=== PATIENT | male | born 1985 | race Caucasian/White ===

== ENCOUNTER 2017-06-25 11:35 | Emergency (ER) | payer OTHER ==
[2017-06-25 11:36] VITALS: BP 159/88; PULSE 109; RESP 12; TEMP 97.9; O2SAT 97
--- NOTE | 2017-06-25 11:40 | PD ---
HPI Chief Complaint: Laceration/Skin Injury Time Seen by Provider: 11:40 Travel History International Travel<30 days: No Contact w/Intl Traveler<30days: No Traveled to known affect area: No History of Present Illness HPI 31-year-old male with no significant medical history presents to the emergency department for evaluation of left index finger injury. This was a crush injury while building a porch. Patient reports moderate pain at the site, it is constant.. Is uncertain of his tetanus status. Denies any limitations range of motion. Denies any alterations in sensation. He has no other symptoms to report. [facility] Past Medical History Medical History: Denies Significant Hx Social History Tobacco Use: No Allergies-Medications (Allergen,Severity, Reaction): Coded Allergies: No Known Allergies (Unverified , 06/25/17) Reported Meds & Prescriptions Reported Meds & Active Scripts Active Blue (Hydrocodone-Acetaminophen) 5 Mg-325 Mg Tab 1 Tab PO Q6H PRN Ibuprofen 600 Mg Tab 600 Mg PO Q8HR PRN Keflex (Cephalexin) 500 Mg Cap 500 Mg PO Q6H 5 Days Review of Systems Except as stated in HPI: all other systems reviewed are Neg Physical Exam Narrative GENERAL: Well-nourished, well-developed male patient in no acute distress. SKIN: Focused skin assessment warm/dry. 2-1/2 cm laceration on the distal aspect of left index finger. Bleeding is controlled. HEAD: Normocephalic. EYES: No scleral icterus. No injection or drainage. NECK: Supple, trachea midline. No JVD or lymphadenopathy. CARDIOVASCULAR: Regular rate and rhythm without murmurs, gallops, or rubs. RESPIRATORY: Breath sounds equal bilaterally. No accessory muscle use. MUSCULOSKELETAL: No cyanosis, or edema. She has full flexion extension of the affected digit. Distal pulses are palpable. Cap refill within normal limits. BACK: Nontender without obvious deformity. No CVA tenderness. Data Data Last Documented VS Vital Signs Date Time Temp Pulse Resp B/P (MAP) Pulse Ox O2 Delivery O2 Flow Rate FiO2 06/25/17 13:14 06/25/17 11:36 97.9 109 12 97 Orders Orders Finger ([id number]) (06/25/17 ) Tetanus/Diphtheria Tox Adult (Tetanus/Di (06/25/17 11:45) Lidocaine 2% Inj (Xylocaine 2% Inj) (2/3/18 11:45) Povidone Iodine 10% Oint (Betadine 10% O (06/25/17 12:45) Ed Discharge Order (06/25/17 12:43) Wound Care (06/25/17 12:43) Lidocaine 1% Inj (Xylocaine 1% Inj) (06/25/17 13:45) MDM Medical Decision Making Medical Screen Exam Complete: Yes Emergency Medical Condition: Yes Medical Record Reviewed: Yes Differential Diagnosis Laceration superficial versus deep versus open fracture versus abrasion versus avulsion Narrative Course 31-year-old male presents to emergency department for evaluation of a crush injury to his index finger of the left hand. Patient sustained a large laceration. X-ray imaging confirms no acute bony abnormality. Wound is cleansed and approximated. Patient is counseled on care. He is updated on his tetanus vaccination. He agrees to return immediately with any acute worsening symptoms. Procedures Procedure Narrative LACERATION LOCATION: Left index finger LENGTH: 2-1/2 cm NUMBER OF STITCHES/STEPHON: 9 sutures REPAIR: The area of the laceration was prepped with Betadine and sterilely draped. The laceration was infiltrated with 2% lidocaine. The wound was copiously irrigated and explored without evidence of foreign body, tendon injury or neurovascular injury. The wound was closed using 4-0 Prolene. This was a single layer repair. A sterile dressing was applied. The patient was advised to keep the dressing clean and dry. Patient tolerated the procedure well. Diagnosis Primary Impression: Finger laceration Qualified Codes: S61.311A - Laceration without foreign body of left index finger with damage to nail, initial encounter Additional Impression: Crush injury of hand Qualified Codes: S67.22XA - Crushing injury of left hand, initial encounter Referrals: Hand Surgeon Primary Care Physician Patient Instructions: Finger Laceration (ED), General Instructions Additional Instructions: Elevate to reduce pain and swelling Follow-up with her primary care provider Sutures are to be removed in 10 days. This can be done in the emergency department are your primary care provider's office Ice will also help reduce pain and swelling. Do this for no longer than 20 minutes at a time and make sure there is a barrier between your skin and the ice WEAR your aluminum splint for protection Return to the emergency department with any acute worsening of symptoms Med/Other Pt SpecificInfo: Prescription(s) given Scripts Hydrocodone-Acetaminophen (Blue) 5 Mg-325 Mg Tab 1 TAB PO Q6H Y for PAIN GREATER THAN 6, #15 TAB 0 Refills Prov: Herminia Mac 06/25/17 Ibuprofen (Ibuprofen) 600 Mg Tab 600 MG PO Q8HR Y for PAIN, #30 TAB 0 Refills Prov: Herminia Mac 06/25/17 Cephalexin (Keflex) 500 Mg Cap 500 MG PO Q6H for Infection for 5 Days, #20 CAP 0 Refills Prov: Herminia Mac 06/25/17 Disposition: 01 DISCHARGE HOME Condition: Stable Herminia Mac Jun 25, 2017 11:40
[2017-06-25] MEDS ORDERED: LIDOCAINE HCL 2% 20 ML VIAL INFIL ONE (11:45)
[2017-06-25] MEDS ORDERED: TETANUS/DIPHTHERIA TOXOID ADULT 0.5 ML VIAL IM ONE (11:45)
--- NOTE | 2017-06-25 12:03 | RADRPT ---
EXAM DATE/TIME: 06/25/2017 11:51 [place] COMPARISON: No previous studies available for comparison. INDICATIONS : Left hand, second digit laceration. Patient got finger caught between 2 beams. MEDICAL HISTORY : None. SURGICAL HISTORY : None. ENCOUNTER: Initial ACUITY: 1 day PAIN SCORE: 10/10 LOCATION: Left hand, second digit. FINDINGS: Examination of the second digit of the left hand demonstrates no evidence of fracture or dislocation. No radiopaque foreign bodies are seen. Soft tissue swelling/laceration of the index finger CONCLUSION: Soft tissue injury second digit without fracture.. Benny Munoz MD on June 25, 2017 at 11:58 Board Certified Radiologist. This report was verified electronically.
[2017-06-25] MEDS ORDERED: NORC5TAB PO (12:41)
[2017-06-25] MEDS ORDERED: IBUP-232 PO (12:41)
[2017-06-25] MEDS ORDERED: CEPH-460 PO (12:41)
[2017-06-25] MEDS ORDERED: POVIDONE IODINE 10% OINT 30 GM TUBE TOPICAL ONE (12:45)
[2017-06-25] MEDS ORDERED: LIDOCAINE HCL 1% 30 ML VIAL INFIL ONE (13:45)
== END 2017-06-25 14:17 | disposition home or self-care (01) ==
LOC: NEPD 11:35
DX: S61.211A Laceration without foreign body of left index finger without damage to nail, initial encounter (principal); X58.XXXA Exposure to other specified factors, initial encounter; Y93.H3 Activity, building and construction; Z23 Encounter for immunization
CPT/HCPCS: 12001; 73140; 90471; 90714

== ENCOUNTER 2017-07-05 15:52 | Emergency (ER) | payer OTHER ==
[~2017-07-05] VITALS: Ht 157.5 cm; Wt 68.0 kg
[~2017-07-05 15:52] MED LIST: CEPH-460 PO; IBUP-232 PO; NORC5TAB PO
[2017-07-05 15:53] VITALS: BP 136/90; PULSE 76; RESP 16; TEMP 98.2; O2SAT 99
--- NOTE | 2017-07-05 16:26 | PD ---
HPI Chief Complaint: Laceration/Skin Injury Time Seen by Provider: 16:02 Travel History International Travel<30 days: No Contact w/Intl Traveler<30days: No Traveled to known affect area: No History of Present Illness HPI This patient is a Sami speaker, all interpretation was via official medical interpreter. 31-year-old male presents for suture removal. He was seen here several days ago with a laceration to the finger pad of the left next finger. It was repaired with sutures. He continues to have pain in the left index finger as well as some limited range of motion. Pain is aching, constant, worse with palpation. Denies any fevers, chills. He has been using a finger splint most of the time. He has been on light duty at work. He works in construction. No other complaints at this time. [facility] Social History Alcohol Use: No Tobacco Use: No Substance Use: No Allergies-Medications (Allergen,Severity, Reaction): Coded Allergies: No Known Allergies (Unverified , 06/25/17) Reported Meds & Prescriptions Reported Meds & Active Scripts Active [place] (Hydrocodone-Acetaminophen) 5 Mg-325 Mg Tab 1 Tab PO Q6H PRN Ibuprofen 600 Mg Tab 600 Mg PO Q8HR PRN Keflex (Cephalexin) 500 Mg Cap 500 Mg PO Q6H 5 Days Review of Systems General / Constitutional: No: Fever, Chills Musculoskeletal: Positive: Limited ROM, Pain Skin: Positive Other (positive for laceration, sutures) Physical Exam Narrative GENERAL: Well-developed well-nourished male in no acute distress SKIN: Warm and dry. Well healing laceration in the finger pad of left index finger with multiple sutures in place and some scabbing. There is some tenderness to palpation. HEAD: Atraumatic. Normocephalic. EYES: Pupils equal and round. No scleral icterus. No injection or drainage. ENT: No nasal bleeding or discharge. Mucous membranes pink and moist. NECK: Trachea midline. No JVD. CARDIOVASCULAR: Regular rate and rhythm. No murmur appreciated. RESPIRATORY: No accessory muscle use. Clear to auscultation. Breath sounds equal bilaterally. MUSCULOSKELETAL: Skin as noted above. The patient has range of motion limitation in the left index finger PIP and DIP joints. NEUROLOGICAL: Awake and alert. No obvious cranial nerve deficits. Motor grossly within normal limits. Normal speech. Data Data Last Documented VS Vital Signs Date Time Temp Pulse Resp B/P (MAP) Pulse Ox O2 Delivery O2 Flow Rate FiO2 07/05/17 15:53 98.2 76 16 136/90 (105) 99 Room Air Orders Orders Ed Discharge Order (07/05/17 16:23) MDM Medical Decision Making Medical Screen Exam Complete: Yes Emergency Medical Condition: Yes Medical Record Reviewed: Yes Differential Diagnosis Suture removal, wound dehiscence, infected wound Narrative Course The sutures were removed without incident but the wound is still healing and the patient has some limited range of motion in the left index finger which could possibly be secondary to splinting. 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 He verbalizes understanding. Diagnosis Primary Impression: Visit for suture removal Additional Instructions: Follow-up with primary care physician in one to 2 weeks. No returning to full duty work until cleared by primary care physician. Decrease use of finger splint and increased range of motion activities in the left index finger. Wash the wound very gently with soap and water and apply antibiotic cream daily until healed. Return for any emergent medical conditions. Med/Other Pt SpecificInfo: Wound Care Disposition: 01 DISCHARGE HOME Condition: Stable Richmond Davenport Jul 05, 2017 16:26
== END 2017-07-05 16:43 | disposition home or self-care (01) ==
LOC: NEPK 15:52
DX: Z48.02 Encounter for removal of sutures (principal)
CPT/HCPCS: 99281

== ENCOUNTER 2018-01-22 07:59 | Inpatient (IN) ==
[2018-01-22] MEDS ORDERED: Ketorolac Inj 30 MG/ML (IVP) Vial IV.PUSH ONE (08:11)
[2018-01-22] MEDS ORDERED: Sod Chloride 0.9% Inj 1,000 ML IV.SIG ONE (08:11)
[2018-01-22 08:35] LABS: Baso # (Auto) 0.1 th/mm3 (0.0-0.2); Baso % (Auto) 0.3 % (0.0-2.0); Eos % (Auto) 0.1 % (0.0-4.0); Hematocrit 41.5 % (39.0-51.0); Hemoglobin 14.1 gm/dL (13.0-17.0); Lymph # (Auto) 1.4 th/mm3 (1.0-4.8); Lymph % (Auto) 6.9 % (9.0-44.0); Mean Corpuscular HGB Conc 33.9 % (32.0-36.0); Mean Corpuscular Hemoglobin 31.5 pg (27.0-34.0); Mean Corpuscular Volume 92.8 fL (80.0-100.0); Mean Platelet Volume 7.3 fL (7.0-11.0); Mono # (Auto) 1.2 th/mm3 (0.0-0.9); Mono % (Auto) 5.8 % (0.0-8.0); Neut # (Auto) 18.1 th/mm3 (1.8-7.7); Neut % (Auto) 86.9 % (16.0-70.0); Platelet Count 265 th/mm3 (150-450); Red Blood Count 4.47 mil/mm3 (4.50-5.90); White Blood Count 20.9 th/mm3 (4.0-11.0)
[2018-01-22 08:51] LABS: Alanine Aminotransferase 39 U/L (12-78); Albumin 3.5 g/dL (3.4-5.0); Anion Gap 11 meq/L (5-15); Aspartate Aminotransferase 14 U/L (15-37); Blood Urea Nitrogen 10 mg/dL (7-18); Calcium 8.2 mg/dL (8.5-10.1); Carbon Dioxide 26.7 meq/L (21.0-32.0); Chloride 100 meq/L (98-107); Glomerular Filtration Rate Greater Than 89 mL/min (>89); Glucose,Random 105 mg/dL (74-106); Lipase 78 U/L (73-393); Potassium 3.6 meq/L (3.5-5.1); Sodium 138 meq/L (136-145)
[2018-01-22 08:52] LABS: Alkaline Phosphatase 70 U/L (45-117)
[2018-01-22 09:06] LABS: Bilirubin,Urine Negative (Negative); Clarity,Urine Clear (Clear); Color,Urine Yellow (Yellw/Straw); Glucose,Urine (UA) Negative (Negative); Leukocyte Esterase,Urine Negative (Negative); Mucus,Urine Few /lpf (Occasional); Nitrite,Urine Negative (Negative); Specific Gravity,Urine 1.019 (1.002-1.035); Urobilinogen,Urine 4 or Greater mg/dL (Less than 2)
--- NOTE | 2018-01-22 09:13 | ED ---
HPI General Chief complaint: Abdominal Pain Stated complaint: Abd pain Time Seen by Provider: 01/22/18 08:11 Source: patient Mode of arrival: ambulatory Limitations: no limitations History of Present Illness HPI narrative: Patient is a 32-year-old male who comes in complaining of lower abdominal pain. He says the pain is across his lower abdomen and has been going on for the past 2 days. He denies vomiting. He says he had a fever last night, but he did not measure his temperature. He does report having diarrhea and mucousy stools. He has not taken anything for the pain. He says he has never had this pain before. Severity is mild to moderate. Related Data Home Medications Medication Instructions Recorded Confirmed No Known Home Medications 01/22/18 01/22/18 Allergies Allergy/AdvReac Type Severity Reaction Status Date / Time No Known Allergies Allergy Verified 01/22/18 08:12 Review of Systems ROS: all other systems reviewed are negative Constitutional Denies chills and Denies fever(s) ENT Denies dizziness Cardiovascular Denies chest pain Respiratory Denies cough and Denies dyspnea Gastrointestinal Reports abdominal pain, Reports nausea and Denies vomiting Genitourinary Denies flank pain Musculoskeletal Denies myalgias and Denies arthralgias Integumentary/Breasts Denies lesions and Denies rash Neurologic Denies focal weakness and Denies numbness [facility] Medical History Medical History Patient denies medical problems (Acute) Surgical History Surgical History No history of previous surgery (Acute) Social History Social History Substance History: No History of Abuse Smoking Status: Never smoker How Often Do You Have a Drink Containing Alcohol: Never Recent Travel in [facility] within the Last 8 Weeks: No Recent Out of Country Travel within the Last 8 Weeks: No Immunization History Tetanus Immunization: <5 Years Hx Influenza Vaccine This Season: No Exam Narrative Exam Narrative: GENERAL: Awake and alert, in no acute distress. SKIN: Focused skin assessment warm/dry. HEAD: Atraumatic. Normocephalic. EYES: Pupils equal and round. No scleral icterus. ENT: No nasal bleeding or discharge. Mucous membranes pink and moist. NECK: Trachea midline. No JVD. CARDIOVASCULAR: Regular rate and rhythm. No murmur appreciated. RESPIRATORY: No accessory muscle use. Clear to auscultation. Breath sounds equal bilaterally. GASTROINTESTINAL: Abdomen soft, nondistended. Tender across the lower abdomen, worse in the suprapubic area and RLQ. No rebound or guarding. MUSCULOSKELETAL: No obvious deformities. No clubbing. No cyanosis. No edema. NEUROLOGICAL: Awake and alert. No obvious cranial nerve deficits. Motor grossly within normal limits. Normal speech. PSYCHIATRIC: Appropriate mood and affect; insight and judgment normal. Course Initial Documented Vital Signs Temperature 98.6 F 01/22/18 08:03 Pulse Rate 100 H 01/22/18 08:03 Respiratory Rate 20 01/22/18 08:03 Blood Pressure 140/70 01/22/18 08:03 Pulse Oximetry 99 01/22/18 08:03 Last Documented Vital Signs Temperature 98.6 F 01/22/18 08:03 Pulse Rate 86 01/22/18 08:11 Respiratory Rate 20 01/22/18 08:11 Blood Pressure 119/70 01/22/18 08:11 Pulse Oximetry 99 01/22/18 08:11 Medical Decision Making MDM Narrative Medical decision making narrative: Patient is a 32-year-old male who comes in complaining of 1. Exam shows tenderness to palpation across the lower abdomen. IV established, labs sent. Labs show an elevated white blood cell count. CT abdomen and pelvis performed shows diverticulitis with perforation and abscess formation. I spoke with Dr. Santillan of general surgery, who recommends IV antibiotics and observation. He will evaluate the patient in consult. Patient given Cipro and Flagyl. Given Toradol for pain. He will be admitted for further management. Medical Screen Exam Complete: Yes Emergency Medical Condition: Yes Differential Diagnosis Differential Diagnosis: Appendicitis versus colitis versus radiculitis versus UTI Medical Records Medical records reviewed: Yes I reviewed the patient's medical records. Lab Data Lab results reviewed: Yes I reviewed the patient's lab results. Result diagrams: 01/22/18 08:20 01/22/18 08:20 Lab Results 01/22/18 01/22/18 01/22/18 Range/Units 08:20 08:20 08:50 WBC 20.9 H (4.0-11.0) th/mm3 RBC 4.47 L (4.50-5.90) mil/mm3 Hgb 14.1 (13.0-17.0) gm/dL Hct 41.5 (39.0-51.0) % MCV 92.8 (80.0-100.0) fL MCH 31.5 (27.0-34.0) pg MCHC 33.9 (32.0-36.0) % RDW 13.0 (11.6-17.2) % Plt Count 265 (150-450) th/mm3 MPV 7.3 (7.0-11.0) fL Neut % (Auto) 86.9 H (16.0-70.0) % Lymph % (Auto) 6.9 L (9.0-44.0) % [place] % (Auto) 5.8 (0.0-8.0) % Eos % (Auto) 0.1 (0.0-4.0) % Baso % (Auto) 0.3 (0.0-2.0) % Neut # (Auto) 18.1 H (1.8-7.7) th/mm3 Lymph # (Auto) 1.4 (1.0-4.8) th/mm3 [place] # (Auto) 1.2 H (0.0-0.9) th/mm3 Eos # (Auto) 0.0 (0.0-0.4) th/mm3 Baso # (Auto) 0.1 (0.0-0.2) th/mm3 WBC Differential . Differential Comment Auto diff final PT (9.8-11.6) sec INR Ratio APTT (24.3-30.1) sec Sodium 138 (136-145) meq/L Potassium 3.6 (3.5-5.1) meq/L Chloride 100 (98-107) meq/L Carbon Dioxide 26.7 (21.0-32.0) meq/L Anion Gap 11 (5-15) meq/L BUN 10 (7-18) mg/dL Creatinine 0.89 (0.60-1.30) mg/dL Estimated GFR Greater than 89 (>89) mL/min Random Glucose 105 (74-106) mg/dL Calcium 8.2 L (8.5-10.1) mg/dL Total Bilirubin 1.2 H (0.2-1.0) mg/dL AST 14 L (15-37) U/L ALT 39 (12-78) U/L Alkaline Phosphatase 70 (45-117) U/L Total Protein 8.0 (6.4-8.2) g/dL Albumin 3.5 (3.4-5.0) g/dL Lipase 78 (73-393) U/L Urine Color Yellow (Yellw/Straw) Urine Clarity Clear (Clear) Urine pH 6.0 (5.0-8.5) Ur Specific [place] 1.019 (1.002-1.035) Urine Protein 30 H (Neg-Trace) mg/dL Urine Glucose (UA) Negative (Negative) mg/dL Urine Ketones 20 (Negative) mg/dL Urine Occult Blood Moderate H (Negative) Urine Nitrate Negative (Negative) Urine Bilirubin Negative (Negative) Urine Urobilinogen 4 or greater (Less than 2) mg/dL Ur Leukocyte Esterase Negative (Negative) Urine RBC 7 H (0-3) /hpf Urine WBC 1 (0-5) /hpf Urine Mucus Few H (Occasional) /lpf Micro UA Comment Culture not ind Ur Microscopic Review Not Reportable Urine Culture Comments Culture not ind 01/22/18 Range/Units 09:33 WBC (4.0-11.0) th/mm3 RBC (4.50-5.90) mil/mm3 Hgb (13.0-17.0) gm/dL Hct (39.0-51.0) % MCV (80.0-100.0) fL MCH (27.0-34.0) pg MCHC (32.0-36.0) % RDW (11.6-17.2) % Plt Count (150-450) th/mm3 MPV (7.0-11.0) fL Neut % (Auto) (16.0-70.0) % Lymph % (Auto) (9.0-44.0) % [place] % (Auto) (0.0-8.0) % Eos % (Auto) (0.0-4.0) % Baso % (Auto) (0.0-2.0) % Neut # (Auto) (1.8-7.7) th/mm3 Lymph # (Auto) (1.0-4.8) th/mm3 [place] # (Auto) (0.0-0.9) th/mm3 Eos # (Auto) (0.0-0.4) th/mm3 Baso # (Auto) (0.0-0.2) th/mm3 WBC Differential Differential Comment PT 11.5 (9.8-11.6) sec INR 1.1 Ratio APTT 31.2 H (24.3-30.1) sec Sodium (136-145) meq/L Potassium (3.5-5.1) meq/L Chloride (98-107) meq/L Carbon Dioxide (21.0-32.0) meq/L Anion Gap (5-15) meq/L BUN (7-18) mg/dL Creatinine (0.60-1.30) mg/dL Estimated GFR (>89) mL/min Random Glucose (74-106) mg/dL Calcium (8.5-10.1) mg/dL Total Bilirubin (0.2-1.0) mg/dL AST (15-37) U/L ALT (12-78) U/L Alkaline Phosphatase (45-117) U/L Total Protein (6.4-8.2) g/dL Albumin (3.4-5.0) g/dL Lipase (73-393) U/L Urine Color (Yellw/Straw) Urine Clarity (Clear) Urine pH (5.0-8.5) Ur Specific [place] (1.002-1.035) Urine Protein (Neg-Trace) mg/dL Urine Glucose (UA) (Negative) mg/dL Urine Ketones (Negative) mg/dL Urine Occult Blood (Negative) Urine Nitrate (Negative) Urine Bilirubin (Negative) Urine Urobilinogen (Less than 2) mg/dL Ur Leukocyte Esterase (Negative) Urine RBC (0-3) /hpf Urine WBC (0-5) /hpf Urine Mucus (Occasional) /lpf Micro UA Comment Ur Microscopic Review Urine Culture Comments Imaging Data Radiologist's impression: Abdomen/Pelvis CT 01/22/18 08:11 CONCLUSION: 1. Perforated acute diverticulitis of the sigmoid colon with developing abscess formation, and a few foci of free air identified. Discharge Plan Discharge Disposition Patient Disposition: 30 Still Patient Discharge Condition Condition: Stable Discharge Details Diagnosis: Diverticulitis, Abdominal abscess Physicians Team ED Provider: Africa Gudino Primary Care Provider: UNKNOWN, Rxs /Orders / Referrals /Forms Prescriptions: No Action No Known Home Medications RF: 0 Discharge Interventions Interventions: Vital Signs Last Done: 01/22/18 08:11 Status ED Status: With Doctor
--- NOTE | 2018-01-22 09:25 | CT ---
EXAM DATE: 01/22/2018 9:19 AM EDT AGE/SEX: 32 years / Male INDICATIONS: Lower abdominal pain 2 weeks CLINICAL DATA: This is the patient's initial encounter. Patient reports that signs and symptoms have been present for 2 weeks and indicates a pain score of 7/10. MEDICAL/SURGICAL HISTORY: None. None. ORAL CONTRAST: No oral contrast ingested. RADIATION DOSE: 4.6 CTDI (mGy) COMPARISON: No prior exams available for comparison. TECHNIQUE: Multiple contiguous axial images were obtained through the abdomen and pelvis following b olus infusion of 76ML ml Omnipaque 350 (iohexol) nonionic water-soluble contrast as a single exam d ose. No oral contrast ingested. Using automated exposure control and adjustment of the mA and/or kV according to patient size, radiation dose was kept as low as reasonably achievable to obtain optimal diagnostic quality images. DICOM format image data is available electronically for review and compar telly. FINDINGS: Osseous structures are intact. Lung bases are clear. No pleural or pericardial effusions are identifi ed. Liver, gallbladder, kidneys, adrenals, spleen, pancreas, stomach are normal in appearance. Urinar y bladder is unremarkable. The examination demonstrates abnormal bowel wall thickening involving the sigmoid colon extending approximately 10 cm in length. There is significant adjacent inflammatory str anding seen. There are a few locules of free air seen just superior to the abnormal segment of sigmoi d colon, and a rim-enhancing collection measuring 5.1 x 3.7 cm in transverse and AP dimension on imag e 58 is identified with a small amount of adjacent free fluid. The appearances characteristic of acut e diverticulitis with focal perforation and developing abscess formation. The appendix is normal. CONCLUSION: 1. Perforated acute diverticulitis of the sigmoid colon with developing abscess formation, and a few foci of free air identified. Electronically signed by: Justin Pena MD 01/22/2018 9:24 AM EDT
[2018-01-22] MEDS ORDERED: Ciprofloxacin 400 MG/200 ML 400 MG/200 ML PIGGYBACK IV.SIG ONE (09:31)
[2018-01-22 09:51] LABS: Activated Partial Thrombo Time 31.2 sec (24.3-30.1); INR 1.1 Ratio; Prothrombin Time 11.5 sec (9.8-11.6)
--- NOTE | 2018-01-22 12:13 | P.HPIM ---
History of Present Illness Service: [facility] Primary Care Physician: UNKNOWN Chief Complaint: Abdominal pain, fever History of Present Illness: Mr. Day is a 32 yo M with no significant PMH who presents to [facility] with abdominal pain. [Translation services used with assistance of nursing staff since patient is Kyrgyz speaking.] Patient reports having abdominal pain for the past 2 weeks. Pain initially was light but has worsened in intensity over the past several days. Patient also began having fever over the past ~2 days. Patient had nausea and an episode of vomiting greater than a week ago but not recently; he has not been eating as much. Patient also reported pain with bowel movements and that he has been having "phlegm" when defecating. Patient has also been urinating less until he arrived at ED. He denies prior episodes of similar symptoms. Patient does not report other symptoms at this time. No chest pain, shortness of breath, headache, visual changes, numbness/weakness, or other concerns. [Interval history: Patient found to be mildly tachycardic on admission with HR 100; otherwise normal VS. Leukocytosis on admission; CMP with mild BILI elevation to 1.2. CT A/ P demonstrated perforated diverticulitis of sigmoid colon with developing abscess; few foci of free air identified. Patient started on empiric Ciprofloxacin and Flagyl and given IV NS. ED discussed with Dr. Santillan. Patient admitted to [facility] service] - Diagnosis (1) Diverticulitis (2) Abdominal abscess Inpatient Certification: I certify that the inpatient services were ordered in accordance with Medicare regulations governing the order. This includes certification that hospital inpatient services are reasonable and necessary and in the case of services not specified as inpatient-only under 42 CFR 419.22(n), that they are appropriately provided as inpatient services in accordance to with the 2-midnight benchmark under 43 CFR 412.3(e) Review of Systems All other systems reviewed negative except as stated in HPI Constitutional: Reports fever(s), Denies body ache(s), Denies headache(s) Eyes: Denies blind spots, Denies blurry vision Ears, Nose, Mouth, and Throat: Denies mouth pain, Denies nasal congestion Cardiovascular: Denies chest pain, Denies irregular heart rhythm Respiratory: Denies chest congestion, Denies cough Gastrointestinal: Reports abdominal pain, Reports change in bowel habits Genitourinary: Denies urinary frequency, Denies urinary urgency Musculoskeletal: Denies back pain, Denies body aches Neurologic: Denies abnormal movements, Denies confusion Endocrine: Denies excessive sweating, Denies increased urination Allergic/Immunologic: Denies hives, Denies wheezing PMFSH - History History Provided By: Patient - Medical History Medical History: Medical History (Last Reviewed 01/22/18 @ 09:12 by Africa Gudino MD) Patient denies medical problems - Surgical History Surgical History: Surgical History (Last Reviewed 01/22/18 @ 09:12 by Africa Gudino MD) No history of previous surgery - Tobacco History Smoking Status: Never smoker - Alcohol History How Often Do You Have a Drink Containing Alcohol: Never - Substance Use History Substance History: No History of Abuse - Travel History Recent Travel in the [place] Within the Last 8 Weeks: No Recent Travel Out of the Country Within the Last 8 Weeks: No - Immunization History Tetanus Immunization: <5 Years Hx Influenza Vaccine This Season: No Medications and Allergies Active Medications: Active Medications Sodium Chloride (Ns Flush) 2 ml IV.FLUSH PRN PRN PRN Reason: FLUSH AFTER USING IV ACCESS Last Admin: 01/22/18 09:18 Dose: 2 ml Some OTC pain medications at home Allergies Allergy/AdvReac Type Severity Reaction Status Date / Time No Known Allergies Allergy Verified 01/22/18 08:12 Home Medications Medication Instructions Recorded Confirmed Type No Known Home Medications 01/22/18 01/22/18 History Exam Vital signs: Vital Signs 01/22/18 08:03 01/22/18 08:11 Temperature 98.6 F Pulse Rate 100 H 86 Respiratory Rate 20 20 Blood Pressure 140/70 119/70 Pulse Oximetry 99 99 Intake & Output 01/21/18 01/22/18 01/22/18 18:59 06:59 18:59 Intake Total 1200 / 1200 Balance 1200 / 1200 Weight 65.771 kg Intake: IV 1200 / 1200 Cipro 400 MG/200 ML Inj 400 mg 200 / 200 In 200 ml @ 200 mls/hr IV.SIG ONCE ONE Rx#:[id number] NS Inj 1,000 ML @ Wide Open IV. 1000 / 1000 SIG BOLUS ONE Rx#:[id number] Narrative: Gen: No acute distress Skin: NO visible lesions Neck: NO appreciated thyromegaly or lymphadenopathy CV: Regular rate and rhythm; no murmurs. Normal perfusion Resp: CTAB, normal rate Abd: Soft, no tenderness to light palpation to any quadrant. Normal BS Ext: Grossly normal strength and ROM Neuro: Grossly normal CN. Grossly normal peripheral motor/sensory function Results - Labs CBC & Chem 7: 01/22/18 08:20 01/22/18 08:20 Labs: Short CBC 01/22/18 Range/Units 08:20 WBC 20.9 H (4.0-11.0) th/mm3 Hgb 14.1 (13.0-17.0) gm/dL Hct 41.5 (39.0-51.0) % Plt Count 265 (150-450) th/mm3 BMP 01/22/18 08:20 Sodium 138 Potassium 3.6 Chloride 100 Carbon Dioxide 26.7 BUN 10 Creatinine 0.89 Calcium 8.2 L Liver Function 01/22/18 Range/Units 08:20 Total Bilirubin 1.2 H (0.2-1.0) mg/dL AST 14 L (15-37) U/L ALT 39 (12-78) U/L Alkaline Phosphatase 70 (45-117) U/L Albumin 3.5 (3.4-5.0) g/dL Urine 01/22/18 Range/Units 08:50 Urine Color Yellow (Yellw/Straw) Urine Clarity Clear (Clear) Urine pH 6.0 (5.0-8.5) Ur Specific [place] 1.019 (1.002-1.035) Urine Protein 30 H (Neg-Trace) mg/dL Urine Glucose (UA) Negative (Negative) mg/dL - Imaging Impressions Abdomen/Pelvis CT 01/22/18 08:11 CONCLUSION: 1. Perforated acute diverticulitis of the sigmoid colon with developing abscess formation, and a few foci of free air identified. Caprini VTE Risk Assessment Caprini VTE Risk Assessment: Moderate/High Risk (score >= 2) Caprini Risk Assessment Model: Point Value = 1 Point Value = 2 Point Value = 3 Point Value = 5 Age 41-60 Minor surgery BMI > 25 kg/m2 Swollen legs Varicose veins or History of unexplained or recurrent spontaneous Oral contraceptives or hormone replacement Sepsis (< 1 month) Serious lung disease, including pneumonia (< 1 month) Abnormal pulmonary function Acute myocardial infarction Congestive heart failure (< 1 month) History of inflammatory bowel disease Medical patient at bed rest Age 61-74 Arthroscopic surgery Major open surgery (> 45 min) Laparoscopic surgery (> 45 min) Malignancy Confined to bed (> 72 hours) Immobilizing plaster cast Central venous access Age >= 75 History of VTE Family history of VTE Factor V Leiden Prothrombin [id number] Lupus anticoagulant Anticardiolipin antibodies Elevated serum homocysteine Heparin-induced thrombocytopenia Other congenital or acquired thrombophilia Stroke (< 1 month) Elective arthroplasty Hip, pelvis, or leg fracture Acute spinal cord injury (< 1 month) Prophylaxis Regimen: Total Risk Factor Score Risk Level Prophylaxis Regimen 0-1 Low Early ambulation 2 Moderate Order ONE of the following: *Sequential Compression Device (SCD) *Heparin 5000 units SQ BID 3-4 Higher Order ONE of the following medications: *Heparin 5000 units SQ TID *Enoxaparin/Lovenox 40 mg SQ daily (WT < 150 kg, CrCl > 30 mL/min) *Enoxaparin/Lovenox 30 mg SQ daily (WT < 150 kg, CrCl > 10-29 mL/min) *Enoxaparin/Lovenox 30 mg SQ BID (WT < 150 kg, CrCl > 30 mL/min) AND/OR *Sequential Compression Device (SCD) 5 or more Highest Order ONE of the following medications: *Heparin 5000 units SQ TID (Preferred with Epidurals) *Enoxaparin/Lovenox 40 mg SQ daily (WT < 150 kg, CrCl > 30 mL/min) *Enoxaparin/Lovenox 30 mg SQ daily (WT < 150 kg, CrCl > 10-29 mL/min) *Enoxaparin/Lovenox 30 mg SQ BID (WT < 150 kg, CrCl > 30 mL/min) AND *Sequential Compression Device (SCD) Assessment and Plan - Assessment (1) Diverticulitis Code(s): K57.92 - Diverticulitis of intestine, part unspecified, without perforation or abscess without bleeding Status: Acute (2) Abdominal abscess Status: Acute - Plan Mr. Day is a 32 yo M with no significant PMH who presents to [facility] with abdominal pain and fever Diverticulitis Impression: 2 weeks abdominal pain with recent worsening and fever. patient with borderline tachycardia (HR 100) and leukocytosis (WBC ~20 K) on admission CT A/P demonstrated perforated diverticulitis of sigmoid colon with developing abscess; few foci of free air identified -Will check BC x2 since met sepsis criteria -Will give empiric antibiotic therapy -s/p Cipro/Flagy; x1 in ED -Will continue Zosyn 3.375gm q6hrs -Will continue IV NS -s/p 1 L bolus -Continue maintenance NS -monitor urine output (normal currently) -General surgery consulted -ED discussed with Dr. Santillan -Will keep NPO until surgery evaluation -Since patient's pain has resolved, will give Toradol 15mg IV PRN for pain 6-10 TBILI mildly elevated at 1.2 -Will repeat CMP -Will consult CM DVT PPX -Bilateral SCD's Code Status: Full code
[2018-01-22] MEDS: Sod Chloride 0.9% Inj 1,000 ML IV.CONT SCH ×2 (16:01→22:15)
[2018-01-22] MEDS: Ketorolac Inj 30 MG/ML (IVP) Vial IV.PUSH PRN (16:02)
[2018-01-22] MEDS: Piperacil/Tazo 3.375 GM Premix 50 ML IV.SIG SCH ×2 (16:07→19:44)
--- NOTE | 2018-01-22 20:59 | MB ---
cc: Marc Santillan MD DATE: 01/22/2018 REQUESTING PHYSICIAN: Jorge Kevin MD REASON FOR CONSULTATION: Diverticulitis. HISTORY OF PRESENT ILLNESS: The patient is a 32-year-old male who was admitted to [facility] with diverticulitis. The patient is mostly [place] speaking and through an volunteer services director was able to provide history of approximately two weeks of increasing left lower quadrant abdominal pain. This was associated with difficulty having bowel movements as well as decreased p.o. intake and fevers. Pain continued to worsen and it was significantly worse today and he presented to the emergency department. The patient underwent evaluation including a CT scan of abdomen and pelvis, which showed significant inflammation around the sigmoid colon. The patient was also noted to have white blood cell count of 20.9. The patient was admitted. General Surgery was consulted for evaluation and management. REVIEW OF SYSTEMS: A 12-point review of systems was conducted with the patient and pertinent positives mentioned above in history of present illness. PAST MEDICAL HISTORY: The patient denies any significant past medical history. PAST SURGICAL HISTORY: None. SOCIAL HISTORY: The patient denies alcohol, tobacco or illicit drug use. MEDICATIONS: 1. Toradol. 2. Zofran. 3. Zosyn. ALLERGIES: NO KNOWN DRUG ALLERGIES. PHYSICAL EXAMINATION: VITAL SIGNS: Temperature 97.8 degrees, heart rate 101, blood pressure 104/55. GENERAL: The patient is a well-developed, well-nourished, male in no acute distress. HEENT: Head is normocephalic, atraumatic. Pupils are round and reactive to light. Sclerae are anicteric. Oral cavity is clear. Nares patent. NECK: Supple. No JVD. No lymphadenopathy. LUNGS: Breath sounds present bilaterally. Nonlabored breathing pattern. HEART: Regular rate and rhythm. No murmurs. ABDOMEN: Soft. No peritonitis or rebound tenderness. He is subjectively tender in the right lower quadrant, focally. No surgical scars. No organomegaly. No decreased bowel sounds. No hernias on exam. BACK: No CVA tenderness. EXTREMITIES: No clubbing, cyanosis or edema. NEUROLOGIC: The patient is alert and oriented x3. Converses well. Judgment seems intact through the celery packer program. Nonfocal peripheral exam. Cranial nerves 2-12 are grossly intact. LABORATORY DATA: White blood cell count 20.9, hemoglobin 14.1. IMAGING: CT scan shows complicated diverticulitis at the sigmoid colon. No other acute findings. ASSESSMENT AND PLAN: The patient is a 32-year-old male with complicated diverticulitis. The patient is stable and is a good candidate for nonoperative management. I agree with the current management with IV antibiotics and bowel rest. The patient is concerned about a significant hospital stay as well as incurring costs, as he states he does not have insurance. We will follow the patient and make recommendations, and the patient may be able to progress quickly to a liquid diet and discharge, based on his clinical course over the next 24 hours. Thank you very much for this consultation. We will follow along with you. MD YONATAN Zhang/katie , 07:21 PM , 07:30 PM
[2018-01-23] MEDS: Ketorolac Inj 30 MG/ML (IVP) Vial IV.PUSH PRN ×2 (00:15→08:14)
[2018-01-23] MEDS: Sod Chloride 0.9% Inj 1,000 ML IV.CONT SCH ×3 (02:01→19:47)
[2018-01-23] MEDS: Piperacil/Tazo 3.375 GM Premix 50 ML IV.SIG SCH ×4 (02:36→20:50)
[2018-01-23 07:49] LABS: Alanine Aminotransferase 33 U/L (12-78); Anion Gap 9 meq/L (5-15); Aspartate Aminotransferase 19 U/L (15-37); Calcium 8.3 mg/dL (8.5-10.1); Carbon Dioxide 25.7 meq/L (21.0-32.0); Chloride 108 meq/L (98-107); Glomerular Filtration Rate Greater Than 89 mL/min (>89); Glucose,Random 79 mg/dL (74-106); Potassium 3.6 meq/L (3.5-5.1); Sodium 143 meq/L (136-145)
[2018-01-23 07:59] LABS: Alkaline Phosphatase 69 U/L (45-117); Blood Urea Nitrogen 14 mg/dL (7-18); Total Protein 7.5 g/dL (6.4-8.2)
[2018-01-23 08:27] LABS: Baso % (Auto) 0.2 % (0.0-2.0); Eos # (Auto) 0.1 th/mm3 (0.0-0.4); Eos % (Auto) 0.3 % (0.0-4.0); Hematocrit 40.3 % (39.0-51.0); Hemoglobin 13.8 gm/dL (13.0-17.0); Lymph # (Auto) 1.3 th/mm3 (1.0-4.8); Lymph % (Auto) 7.4 % (9.0-44.0); Mean Corpuscular HGB Conc 34.3 % (32.0-36.0); Mean Corpuscular Hemoglobin 31.8 pg (27.0-34.0); Mean Corpuscular Volume 92.8 fL (80.0-100.0); Mean Platelet Volume 7.9 fL (7.0-11.0); Mono % (Auto) 5.7 % (0.0-8.0); Neut % (Auto) 86.4 % (16.0-70.0); Platelet Count 237 th/mm3 (150-450); Red Blood Count 4.34 mil/mm3 (4.50-5.90); Red Cell Distribution Width 12.8 % (11.6-17.2); White Blood Count 17.4 th/mm3 (4.0-11.0)
--- NOTE | 2018-01-23 10:52 | P.PN ---
Subjective Interval history: He is in bed he appears to not acute distress. Temperature 104 height. No chills. Pain in his belly improved significantly. Able to tolerate clears, no nausea or vomiting. Physical Exam Vital signs: Vital Signs 01/22/18 16:00 01/22/18 20:27 01/23/18 00:25 Temperature 97.8 F 98.8 F 99.5 F Pulse Rate 101 H 94 H 84 Respiratory Rate 20 18 18 Blood Pressure 104/55 L 127/68 125/65 Pulse Oximetry 99 96 98 01/23/18 00:45 01/23/18 08:00 Temperature 98.9 F Pulse Rate 74 Respiratory Rate 16 18 Blood Pressure 125/72 Pulse Oximetry 96 Intake & Output 01/22/18 01/23/18 01/23/18 18:59 06:59 18:59 Intake Total 1350 / 1350 1100 / 1100 Balance 1350 / 1350 1100 / 1100 Weight 65.771 kg 65 kg Intake: IV 1350 / 1350 1100 / 1100 NS Inj 1,000 ML @ 100 mls/hr IV 1000 / 1000 .CONT .Q10H [facility] Rx#:[id number] Cipro 400 MG/200 ML Inj 400 mg 200 / 200 In 200 ml @ 200 mls/hr IV.SIG ONCE ONE Rx#:[id number] Zosyn 3.375 GM Premix 50 ML @ 50 / 50 100 / 100 100 mls/hr IV.SIG Q6H [facility] Rx#: [id number] NS Inj 1,000 ML @ Wide Open IV. 1000 / 1000 SIG BOLUS ONE Rx#:[id number] Other: # Voids 3 Narrative: GENERAL: Young male in bed appears in nad. CARDIOVASCULAR: Regular rate and rhythm. RESPIRATORY: No accessory muscle use. Clear to auscultation. Breath sounds equal bilaterally. GASTROINTESTINAL: Abdomen soft, non-tender, nondistended. Hepatic and splenic margins not palpable. MUSCULOSKELETAL: Extremities without clubbing, cyanosis, or edema. No obvious deformities. NEUROLOGICAL: Awake and alert. No obvious cranial nerve deficits. Motor grossly within normal limits. Normal speech. PSYCHIATRIC: Appropriate mood and affect; insight and judgment normal. Results - Labs CBC & Chem 7: 01/23/18 06:37 01/23/18 06:37 Laboratory Results - last 24 hr 01/23/18 01/23/18 06:37 06:37 WBC 17.4 H RBC 4.34 L Hgb 13.8 Hct 40.3 MCV 92.8 MCH 31.8 MCHC 34.3 RDW 12.8 Plt Count 237 MPV 7.9 Neut % (Auto) 86.4 H Lymph % (Auto) 7.4 L [place] % (Auto) 5.7 Eos % (Auto) 0.3 Baso % (Auto) 0.2 Neut # (Auto) 15.0 H Lymph # (Auto) 1.3 [place] # (Auto) 1.0 H Eos # (Auto) 0.1 Baso # (Auto) 0.0 WBC Differential . Differential Comment Auto diff final Sodium 143 Potassium 3.6 Chloride 108 H D Carbon Dioxide 25.7 Anion Gap 9 BUN 14 Creatinine 0.94 Estimated GFR Greater than 89 Random Glucose 79 Calcium 8.3 L Total Bilirubin 1.1 H AST 19 ALT 33 Alkaline Phosphatase 69 Total Protein 7.5 Albumin 3.0 L Assessment and Plan - Assessment (1) Diverticulitis Code(s): K57.92 - Diverticulitis of intestine, part unspecified, without perforation or abscess without bleeding Status: Acute (2) Abdominal abscess Status: Acute - Plan Mr. Day is a 32 yo M with no significant PMH who presents to [place] ED with abdominal pain and fever Diverticulitis Impression: 2 weeks abdominal pain with recent worsening and fever. patient with borderline tachycardia (HR 100) and leukocytosis (WBC ~20 K) on admission CT A/P demonstrated perforated diverticulitis of sigmoid colon with developing abscess; few foci of free air identified -Will check BC x2 since met sepsis criteria -Will give empiric antibiotic therapy -s/p Cipro/Flagy; x1 in ED -Will continue Zosyn 3.375gm q6hrs -Will continue IV NS -s/p 1 L bolus -Continue maintenance NS -monitor urine output (normal currently) -General surgery consulted -ED discussed with Dr. Santillan. Seenby Dr Doss gen surg -liquid diet as tolerated. Advance diet as tahmina per surgeon. Continue IV antibiotics. Plan to transition to oral antibiotics by tomorrow and if the pt is still improving, discharge to home. -Since patient's pain has resolved, will give Toradol 15mg IV PRN for pain 6-10 TBILI mildly elevated at 1.2 -monitor CMP -consult CM DVT PPX -Bilateral SCD's Code Status: Full code DC plan: 32 yo male with diverticulitis. On liquid diet as tolerated. Advance diet per surgeon . Continue IV antibiotics. Plan to transition to oral antibiotics by tomorrow and if the pt is still improving, discharge to home.
--- NOTE | 2018-01-23 11:25 | P.PNGS ---
Subjective Patient reports: feels better, still having pain, pain is less, afebrile Physical Exam Vital signs: Vital Signs 01/22/18 16:00 01/22/18 20:27 01/23/18 00:25 Temperature 97.8 F 98.8 F 99.5 F Pulse Rate 101 H 94 H 84 Respiratory Rate 20 18 18 Blood Pressure 104/55 L 127/68 125/65 Pulse Oximetry 99 96 98 01/23/18 00:45 01/23/18 08:00 Temperature 98.9 F Pulse Rate 74 Respiratory Rate 16 18 Blood Pressure 125/72 Pulse Oximetry 96 Intake & Output 01/22/18 01/23/18 01/23/18 18:59 06:59 18:59 Intake Total 1350 / 1350 1100 / 1100 Balance 1350 / 1350 1100 / 1100 Weight 65.771 kg 65 kg Intake: IV 1350 / 1350 1100 / 1100 NS Inj 1,000 ML @ 100 mls/hr IV 1000 / 1000 .CONT .Q10H [facility] Rx#:[id number] Cipro 400 MG/200 ML Inj 400 mg 200 / 200 In 200 ml @ 200 mls/hr IV.SIG ONCE ONE Rx#:[id number] Zosyn 3.375 GM Premix 50 ML @ 50 / 50 100 / 100 100 mls/hr IV.SIG Q6H [facility] Rx#: [id number] NS Inj 1,000 ML @ Wide Open IV. 1000 / 1000 SIG BOLUS ONE Rx#:[id number] Other: # Voids 3 - Constitutional no acute distress (watching tv, looked like he felt well) - Routine Abdominal Exam Present: soft (mild suprapubic tenderness) - Routine Neurological Exam Present: alert Assessment and Plan - Plan Allow PO liquids as tolerated. Continue IV antibiotics. Plan to transition to oral antibiotics by tomorrow and if the pt is still improving, discharge to home.
--- NOTE | 2018-01-23 16:08 | P.DIET ---
Nutritional Evaluation Type of nutrition evaluation: initial Nutrition screening: Weight Loss > 10 lbs Subjective Oral Diet Tolerance Assessment Indicates: Nausea, Poor intake due to pain Subjective Comments: Pt reports wt loss r/t nausea and abdominal pain Objective - Diagnosis Abdominal Pain - Objective Hay body weight: 65 kg % IBW: 100 Body Weight Used for Calculations: Actual (65kg) Energy Needs - Lower Range (kCal/kg): 28 Energy Needs - Upper Range (kCal/kg): 33 Lower Limit kCal/kg (kCals): 1,820 Upper Limit kCal/kg (kCals): 2,145 Lower Limit Protein Factor (Grams per Kg): 1.1 Upper Limit Protein Factor (Grams per Kg): 1.3 Lower Protein Needs (Protein): 72 Upper Protein Needs (Protein): 85 Fluid Factor (ml/kg): 33 Estimated Fluid Needs (ml): 2,145 Dietitian Reviewed in Medical Record: Current diet, Curent medications, Intake & Output, Labs, Medical history Diet Order: CL Objective Comments: PMH: None Assessment Assessment: Pt at nutritional risk r/t recent unintentional wt loss. Pt admitted with abdominal pain, dx diverticulitis. Pt on antibiotics, feeling better, on CL diet. Nutritional needs as assessed above. Adequate po intake has not yet been established. Will monitor po intake and provide supplements as needed. Recommendations: diet Dietitian to Monitor: Lab values, Intake & Output, Weight change, PO Intake, Diet advancement, Medical course
[2018-01-23] MEDS ORDERED: Acetaminophen 325 MG Tablet PO PRN (17:12)
[2018-01-24] MEDS: Sod Chloride 0.9% Inj 1,000 ML IV.CONT SCH ×2 (00:33→05:31)
[2018-01-24] MEDS: Piperacil/Tazo 3.375 GM Premix 50 ML IV.SIG SCH ×2 (02:14→08:34)
[2018-01-24 05:40] LABS: Baso % (Auto) 0.2 % (0.0-2.0); Eos # (Auto) 0.1 th/mm3 (0.0-0.4); Hematocrit 35.2 % (39.0-51.0); Hemoglobin 12.2 gm/dL (13.0-17.0); Lymph # (Auto) 1.2 th/mm3 (1.0-4.8); Lymph % (Auto) 13.5 % (9.0-44.0); Mean Corpuscular HGB Conc 34.8 % (32.0-36.0); Mean Corpuscular Hemoglobin 32.5 pg (27.0-34.0); Mean Corpuscular Volume 93.3 fL (80.0-100.0); Mean Platelet Volume 7.6 fL (7.0-11.0); Mono # (Auto) 0.7 th/mm3 (0.0-0.9); Mono % (Auto) 7.3 % (0.0-8.0); Neut # (Auto) 7.1 th/mm3 (1.8-7.7); Platelet Count 213 th/mm3 (150-450); Red Blood Count 3.77 mil/mm3 (4.50-5.90); Red Cell Distribution Width 12.8 % (11.6-17.2); White Blood Count 9.1 th/mm3 (4.0-11.0)
[2018-01-24 06:11] LABS: Albumin 2.5 g/dL (3.4-5.0); Anion Gap 10 meq/L (5-15); Aspartate Aminotransferase 20 U/L (15-37); Blood Urea Nitrogen 8 mg/dL (7-18); Carbon Dioxide 26.3 meq/L (21.0-32.0); Chloride 107 meq/L (98-107); Glomerular Filtration Rate Greater Than 89 mL/min (>89); Glucose,Random 92 mg/dL (74-106); Potassium 3.7 meq/L (3.5-5.1); Sodium 143 meq/L (136-145)
[2018-01-24 06:15] LABS: Alanine Aminotransferase 38 U/L (12-78); Alkaline Phosphatase 62 U/L (45-117); Total Protein 6.3 g/dL (6.4-8.2)
--- NOTE | 2018-01-24 09:06 | P.PN ---
Subjective Interval history: Follow-up visit for perforated diverticulitis and abdominal pain. Patient is seen and examined this morning, appears to be in no acute distress. Reports that his pain has resolved, continues to have a distended belly although now having bowel movements. Patient reports that his bowel movements are a combination of liquid and formed stool. He denies any nausea or vomiting, afebrile overnight. She reports that he is feeling better. Physical Exam Vital signs: Vital Signs 01/23/18 12:00 01/23/18 16:00 01/23/18 20:00 Temperature 97.8 F 100.0 F H 98.4 F Pulse Rate 77 84 75 Respiratory Rate 18 18 18 Blood Pressure 134/61 123/75 134/79 Pulse Oximetry 108 H 100 100 01/24/18 00:00 01/24/18 08:00 Temperature 98.0 F 98.4 F Pulse Rate 58 L 74 Respiratory Rate 19 18 Blood Pressure 138/76 147/82 H Pulse Oximetry 100 100 Intake & Output 01/23/18 01/24/18 01/24/18 18:59 06:59 18:59 Intake Total 1780 / 1780 2600 / 2600 Balance 1780 / 1780 2600 / 2600 Weight 62.6 kg Intake: IV 1100 / 1100 1100 / 1100 NS Inj 1,000 ML @ 100 mls/hr IV 1000 / 1000 1000 / 1000 .CONT .Q10H [facility] Rx#:[id number] Zosyn 3.375 GM Premix 50 ML @ 100 / 100 100 / 100 100 mls/hr IV.SIG Q6H [facility] Rx#: [id number] Oral 680 / 680 1500 / 1500 Other: # Voids 4 3 Date of Last Bowel Movement 01/23/18 01/23/18 # Bowel Movements 3 Results - Labs CBC & Chem 7: 01/24/18 05:01 01/24/18 05:01 Laboratory Results - last 24 hr 01/24/18 01/24/18 05:01 05:01 WBC 9.1 RBC 3.77 L Hgb 12.2 L Hct 35.2 L MCV 93.3 MCH 32.5 MCHC 34.8 RDW 12.8 Plt Count 213 MPV 7.6 Neut % (Auto) 78.0 H Lymph % (Auto) 13.5 [place] % (Auto) 7.3 Eos % (Auto) 1.0 Baso % (Auto) 0.2 Neut # (Auto) 7.1 Lymph # (Auto) 1.2 [place] # (Auto) 0.7 Eos # (Auto) 0.1 Baso # (Auto) 0.0 WBC Differential . Differential Comment Auto diff final Sodium 143 Potassium 3.7 Chloride 107 Carbon Dioxide 26.3 Anion Gap 10 BUN 8 Creatinine 0.84 Estimated GFR Greater than 89 Random Glucose 92 Calcium 8.0 L Total Bilirubin 0.8 AST 20 ALT 38 Alkaline Phosphatase 62 Total Protein 6.3 L D Albumin 2.5 L Microbiology 01/22/18 13:16 Blood - Peripheral Aerobic Blood Culture - Preliminary No growth in 1 day 01/22/18 13:16 Blood - Peripheral Anaerobic Blood Culture - Preliminary No growth in 1 day 01/22/18 13:10 Blood - Peripheral Aerobic Blood Culture - Preliminary No growth in 1 day 01/22/18 13:10 Blood - Peripheral Anaerobic Blood Culture - Preliminary No growth in 1 day Assessment and Plan - Assessment (1) Diverticulitis Code(s): K57.92 - Diverticulitis of intestine, part unspecified, without perforation or abscess without bleeding Status: Acute (2) Abdominal abscess Status: Acute - Plan Mr. Day is a 32 yo M with no significant PMH who presents to [place] ED with abdominal pain and fever Diverticulitis Impression: 2 weeks abdominal pain with recent worsening and fever. patient with borderline tachycardia (HR 100) and leukocytosis (WBC ~20 K) on admission CT A/P demonstrated perforated diverticulitis of sigmoid colon with developing abscess; few foci of free air identified -Will check BC x2 since met sepsis criteria -Will give empiric antibiotic therapy -s/p Cipro/Flagy; x1 in ED -Will continue Zosyn 3.375gm q6hrs -Continue maintenance NS -monitor urine output (normal currently) -General surgery consulted -ED discussed with Dr. Santillan. Seenby Dr Doss gen surg -liquid diet as tolerated. Advance diet as tahmina per surgeon. Continue IV antibiotics. Plan to transition to oral antibiotics today. Plan for discharge to home. -Since patient's pain has resolved, will give Toradol 15mg IV PRN for pain 6-10 TBILI mildly elevated at 1.2 -monitor CMP, TBILI back to normal -consult CM DVT PPX -Bilateral SCD's
--- NOTE | 2018-01-24 10:34 | P.PNGS ---
Subjective Interval history: Ambulating in room Pain better c/o diarrhea Physical Exam Vital signs: Vital Signs 01/23/18 12:00 01/23/18 16:00 01/23/18 20:00 Temperature 97.8 F 100.0 F H 98.4 F Pulse Rate 77 84 75 Respiratory Rate 18 18 18 Blood Pressure 134/61 123/75 134/79 Pulse Oximetry 108 H 100 100 01/24/18 00:00 01/24/18 08:00 01/24/18 10:08 Temperature 98.0 F 98.4 F Pulse Rate 58 L 74 Respiratory Rate 19 18 Blood Pressure 138/76 147/82 H Pulse Oximetry 100 100 99 Intake & Output 01/23/18 01/24/18 01/24/18 18:59 06:59 18:59 Intake Total 1780 / 1780 2600 / 2600 Balance 1780 / 1780 2600 / 2600 Weight 62.6 kg Intake: IV 1100 / 1100 1100 / 1100 NS Inj 1,000 ML @ 100 mls/hr IV 1000 / 1000 1000 / 1000 .CONT .Q10H MEENAKSHI Rx#:[id number] Zosyn 3.375 GM Premix 50 ML @ 100 / 100 100 / 100 100 mls/hr IV.SIG Q6H MEENAKSHI Rx#: [id number] Oral 680 / 680 1500 / 1500 Other: # Voids 4 3 Date of Last Bowel Movement 01/23/18 01/23/18 # Bowel Movements 3 Narrative: Alert and awake Abd: soft; non tender Assessment and Plan - Assessment (1) Diverticulitis Code(s): K57.92 - Diverticulitis of intestine, part unspecified, without perforation or abscess without bleeding Status: Acute Plan: 32 year old male with diverticular abscess -Transition from IV antibiotics to PO -DC IVF -Advance diet to full liquids -Continue to monitor for fevers -WBC now normal -Used [employer] psychologist research assistant during exam and visit - Attending Attestation The exam, history, and the medical decision-making described in the above note were completed with the assistance of the mid-level provider. I reviewed and agree with the findings presented. I attest that I had a [id number] encounter with the patient on the same day, and personally performed and documented my assessment and findings in the medical record. 32yo male with diverticulitis, stable pain better tolerating PO can DC home on full liquids and ABX, and fu with me
[2018-01-24] MEDS ORDERED: Ciprofloxacin 500 MG Tablet PO SCH (10:45)
[2018-01-24 12:22] VITALS: TEMP 98.2
[2018-01-24] MEDS ORDERED: metroNIDAZOLE 500 MG Tablet PO SCH (14:00)
--- NOTE | 2018-01-24 15:08 | P.DS ---
Date of admission: 01/22/18 10:33 Primary care physician: UNKNOWN Attending physician on discharge: Trevon Blank Anticipated date of discharge: 01/24/18 Brief History from admission: Mr. Day is a 32 yo M with no significant PMH who presents to [facility] ED with abdominal pain. [Translation services used with assistance of nursing staff since patient is Chinese speaking.] Patient reports having abdominal pain for the past 2 weeks. Pain initially was light but has worsened in intensity over the past several days. Patient also began having fever over the past ~2 days. Patient had nausea and an episode of vomiting greater than a week ago but not recently; he has not been eating as much. Patient also reported pain with bowel movements and that he has been having "phlegm" when defecating. Patient has also been urinating less until he arrived at ED. He denies prior episodes of similar symptoms. Patient does not report other symptoms at this time. No chest pain, shortness of breath, headache, visual changes, numbness/weakness, or other concerns. [Interval history: Patient found to be mildly tachycardic on admission with HR 100; otherwise normal VS. Leukocytosis on admission; CMP with mild BILI elevation to 1.2. CT A/ P demonstrated perforated diverticulitis of sigmoid colon with developing abscess; few foci of free air identified. Patient started on empiric Ciprofloxacin and Flagyl and given IV NS. ED discussed with Dr. Santillan. Patient admitted to [facility] service] DS: Diagnosis - Discharge Diagnosis (1) Diverticulitis Status: Acute (2) Abdominal abscess Status: Acute DS: Medications - Discharge Medications Prescriptions: ciprofloxacin HCl [Cipro] 500 mg PO Q12H 7 Days #14 tab DS: Summary Hospital Course: 82-year-old male who presented to the emergency department with complaints of abdominal pain [address] of abdomen demonstrated perforated diverticulitis of the sigmoid colon with developing abscess and few foci of free air identified. Patient was started received IV Cipro and Flagyl in the emergency department and transitioned over to IV Zosyn along with IV fluids with improvement in urinary output. General surgery was consulted, patient was seen and evaluated by general surgery surgery services who recommended transitioning IV antibiotics to p.o. antibiotics. Patient has been tolerating clear liquid diet, liquid stool today with some formed stool in between. Patient reports today that he is feeling much better, denies any nausea or vomiting, no comfort. He denies any fevers, chills, cough, shortness of breath or chest pain. Patient has been afebrile, leukocytosis improved on morning labs , total bili back to normal limits, renal function stable and electrolytes stable. Patient reports he is ready to go home, would like assistance with paying hospital bills. Discussed with window caser, patient assistance paperwork provided to patient. Discussed with IDA Villafana okay to discharge if tolerating regular diet. Prescription for Cipro which is free at [facility] provided to patient. - Time Spent with Patient Total time spent providing and/or coordinating discharge services: Less than 30 minutes - Quality: VTE Deep Vein Thrombosis/Pulmonary Embolism Present on Admission: No Exam Vital signs: Vital Signs 01/23/18 16:00 01/23/18 20:00 01/24/18 00:00 Temperature 100.0 F H 98.4 F 98.0 F Pulse Rate 84 75 58 L Respiratory Rate 18 18 19 Blood Pressure 123/75 134/79 138/76 Pulse Oximetry 100 100 100 01/24/18 08:00 01/24/18 10:08 01/24/18 12:00 Temperature 98.4 F 98.2 F Pulse Rate 74 59 L Respiratory Rate 18 18 Blood Pressure 147/82 H 132/81 Pulse Oximetry 100 99 100 Intake & Output 01/23/18 01/24/18 01/24/18 18:59 06:59 18:59 Intake Total 1780 / 1780 2600 / 2600 1050 / 1050 Balance 1780 / 1780 2600 / 2600 1050 / 1050 Weight 62.6 kg Intake: IV 1100 / 1100 1100 / 1100 1050 / 1050 NS Inj 1,000 ML @ 100 mls/hr IV 1000 / 1000 1000 / 1000 1000 / 1000 .CONT .Q10H MEENAKSHI Rx#:[id number] Zosyn 3.375 GM Premix 50 ML @ 100 / 100 100 / 100 50 / 50 100 mls/hr IV.SIG Q6H MEENAKSHI Rx#: [id number] Oral 680 / 680 1500 / 1500 Other: # Voids 4 3 Date of Last Bowel Movement 01/23/18 01/23/18 # Bowel Movements 3 Narrative: GENERAL: Young male in bed appears in nad. CARDIOVASCULAR: Regular rate and rhythm. RESPIRATORY: No accessory muscle use. Clear to auscultation. Breath sounds equal bilaterally. GASTROINTESTINAL: Abdomen soft, non-tender, nondistended. Positive bowel sounds. MUSCULOSKELETAL: Extremities without clubbing, cyanosis, or edema. No obvious deformities. NEUROLOGICAL: Awake and alert. No obvious cranial nerve deficits. Motor grossly within normal limits. Normal speech. PSYCHIATRIC: Appropriate mood and affect; insight and judgment normal. Results Procedures completed during hospitalization: None Labs on day of discharge: Labs from last 24 hours 01/24/18 01/24/18 05:01 05:01 WBC 9.1 RBC 3.77 L Hgb 12.2 L Hct 35.2 L MCV 93.3 MCH 32.5 MCHC 34.8 RDW 12.8 Plt Count 213 MPV 7.6 Neut % (Auto) 78.0 H Lymph % (Auto) 13.5 [place] % (Auto) 7.3 Eos % (Auto) 1.0 Baso % (Auto) 0.2 Neut # (Auto) 7.1 Lymph # (Auto) 1.2 [place] # (Auto) 0.7 Eos # (Auto) 0.1 Baso # (Auto) 0.0 WBC Differential . Differential Comment Auto diff final Sodium 143 Potassium 3.7 Chloride 107 Carbon Dioxide 26.3 Anion Gap 10 BUN 8 Creatinine 0.84 Estimated GFR Greater than 89 Random Glucose 92 Calcium 8.0 L Total Bilirubin 0.8 AST 20 ALT 38 Alkaline Phosphatase 62 Total Protein 6.3 L D Albumin 2.5 L Preliminary micro results at discharge 01/22/18 13:16 Aerobic Blood Culture - Preliminary Blood - Peripheral No growth in 2 days Anaerobic Blood Culture - Preliminary No growth in 2 days 01/22/18 13:10 Aerobic Blood Culture - Preliminary Blood - Peripheral No growth in 2 days Anaerobic Blood Culture - Preliminary No growth in 2 days - Impressions ITS Impressions Abdomen/Pelvis CT 01/22/18 08:11 CONCLUSION: 1. Perforated acute diverticulitis of the sigmoid colon with developing abscess formation, and a few foci of free air identified. Discharge Plan - Discharge Disposition Patient Disposition: Discharge Home - Discharge Condition Condition: Stable - Discharge Order Discharge Orders: Discharge Order (Routine); Ordered 01/24/18 Ordered By: Kanika Sparks - Physicians Team Primary Care Provider: UNKNOWN, Attending Provider: Trevon Blank Other Providers: Marc Santillan MD
[2018-01-24 17:26] VITALS: BP 139/84; PULSE 74; RESP 19; O2SAT 99
== END 2018-01-24 20:07 | disposition home or self-care (01) ==
LOC: NEPC 07:59 → NEDA 10:33 → N07 15:01
PROVIDERS: ADMIT Hospitalist; ATTEND Hospitalist
DX: K57.20 Diverticulitis of large intestine with perforation and abscess without bleeding